=== PATIENT | female | born 1980 | race Caucasian/White ===

== ENCOUNTER → 2020-11-14 | Outpatient (CLI) | payer MEDICAID, OTHER ==
[~2020-11-14] MED LIST: ALBU0.63 NEB; ALBU8.5H8 INH; AMIT10TA PO; IPRATROPIUM NEB; LEVO112T4 PO; LOSA100T2 PO; PREG100C PO; TOPI200T25 PO; ZOLP10TA PO
[2020-11-14 15:09] LABS: BASOPHILS % (AUTO) 1 % (0-1); EOSINOPHILS % (AUTO) 2 % (1-7); LYMPHOCYTES % (AUTO) 18 % (22-44); MEAN CORPUSCULAR HEMOGLOBIN 28.7 pg (27.0-34.8); MEAN CORPUSCULAR HGB CONC 33.1 g/dL (32.4-35.8); MEAN PLATELET VOLUME 7.6 fL (7.4-10.4); MONOCYTES % (AUTO) 6 % (2-9); NEUTROPHILS % (AUTO) 74 % (42-75); PLATELET COUNT 278 x10^3/uL (130-400); RED BLOOD COUNT 4.79 x10^6/uL (3.82-5.3); RED CELL DISTRIBUTION WIDTH 14.8 % (9.6-15.2)
[2020-11-14 15:18] LABS: ALANINE AMINOTRANSFERASE 24 U/L (12-78); ALBUMIN 4.5 g/dL (3.4-5.0); ANION GAP 7 mmol/L (5-15); CALCIUM 9.8 mg/dL (8.5-10.1); CHLORIDE 109 mmol/L (98-107); CREATININE 1.06 mg/dL (0.55-1.02)
[2020-11-14 15:20] LABS: ALKALINE PHOSPHATASE 90 U/L (45-117); BILIRUBIN,TOTAL 0.4 mg/dL (0.2-1.0); TOTAL PROTEIN 7.7 g/dL (6.4-8.2)
[2020-11-14 15:24] LABS: MD NO
[2020-11-14 16:48] LABS: INTERNATIONAL NORMALIZED RATIO 0.93 (0.93-1.1); PROTHROMBIN TIME 9.9 Seconds (9.6-11.5)
== END | disposition home or self-care (01) ==
LOC: STAR 14:00
PROVIDERS: ATTEND Orthopaedic Surgery
DX: Z01.812 Encounter for preprocedural laboratory examination (principal); Z20.828 Contact with and (suspected) exposure to other viral communicable diseases; M17.12 Unilateral primary osteoarthritis, left knee
CPT/HCPCS: 80053; 83036; 85025; 85610; 85730; 87081; 87635

== ENCOUNTER 2020-11-20 06:46 | Day surgery (SDC) | payer MEDICAID, OTHER, SELFPAY ==
[~2020-11-20] VITALS: Ht 182.9 cm; Wt 140.0 kg
[~2020-11-20 06:46] MED LIST changes: +EPINEPHRINE 1 MG/ML, 1ML ONE; +KETOROLAC 60 MG/2 ML ONE; +ROPIvacaine/PF 0.5%, 20 ML ONE; +ROPIvacaine/PF 0.5%, 30 ML ONE; +SODIUM CHLORIDE 0.9% 50 ML ONE; +TRANEXAMIC ACID 100 MG/ML, 10ML ONE; +VANCOMYCIN 1,000 MG ONE
[2020-11-20] MEDS ORDERED: BISACODYL 10 MG SUPP PR PRN (07:00)
[2020-11-20] MEDS ORDERED: TEMPLATE NON-FORMULARY MED. (Albuterol Sulfate (Albuterol Sulfate**) 1 VIAL) NEB PRN (07:00)
[2020-11-20] MEDS ORDERED: MAGNESIUM HYDROXIDE 8%, 30ML UDC PO PRN (07:00)
[2020-11-20] MEDS ORDERED: ONDANSETRON 2MG/ML, 2ML IV PRN (07:00)
[2020-11-20] MEDS ORDERED: ACETAMINOPHEN 650 MG/20.3 ML UDC PO PRN (07:00)
[2020-11-20] MEDS ORDERED: ZOLPIDEM 10MG TABLET PO PRN (07:00)
[2020-11-20] MEDS ORDERED: ALBUTEROL HFA 90 MCG/SPRAY INH PRN (07:00)
[2020-11-20] MEDS ORDERED: DIPHENHYDRAMINE 50 MG CAPSULE PO PRN (07:00)
[2020-11-20] MEDS ORDERED: SENNA/DOCUSATE TABLET PO PRN (07:00)
[2020-11-20] MEDS ORDERED: HYDROcodone/APAP 5/325 TABLET PO PRN (07:00)
[2020-11-20] MEDS ORDERED: OXYcodone IR 5MG TABLET PO PRN (07:00)
[2020-11-20] MEDS ORDERED: ONDANSETRON 4 MG TABLET PO PRN (07:00)
[2020-11-20] MEDS ORDERED: HYDROmorphone 1 MG/ML, 1ML INJ IV PRN (07:00)
[2020-11-20] MEDS ORDERED: NS + 20MEQ KCL 1,000 ML IV SCH (07:00)
[2020-11-20] MEDS ORDERED: CEFAZOLIN PMX 2GM/50ML 50 ML IVPB SCH (07:00)
[2020-11-20 07:12] VITALS: BP 122/83
[2020-11-20] MEDS ORDERED: GABAPENTIN 300 MG CAPSULE PO STA (07:17)
[2020-11-20] MEDS ORDERED: ACETAMINOPHEN 500 MG TABLET PO STA (07:17)
[2020-11-20] MEDS ORDERED: VANCOMYCIN PER PHARMACY MC ONE (07:30)
[2020-11-20] MEDS ORDERED: CHLORHEXIDINE 15 ML UDC MM ONE (07:30)
[2020-11-20] MEDS ORDERED: LACTATED RINGERS 1,000 ML IV SCH (07:30)
[2020-11-20] MEDS ORDERED: DEXAMETHASONE 4 MG/ML, 1ML ONE (07:35)
[2020-11-20 07:39] LABS: HCG UR SG 1.023 (1.003-1.030)
[2020-11-20] MEDS ORDERED: MUPI22OI2 NAS (07:57)
[2020-11-20] MEDS ORDERED: HYDR-3653 PO (07:57)
[2020-11-20] MEDS ORDERED: VANCOMYCIN 2,000 MG in SODIUM CHLORIDE 0.9% 500 ML IV ONE (08:05)
[2020-11-20] MEDS ORDERED: MIDAZOLAM 1 MG/ML, 2ML ONE (08:07)
[2020-11-20] MEDS ORDERED: FENTANYL PF 250 MCG/5ML ONE (08:07)
[2020-11-20] MEDS ORDERED: TOPIRAMATE 200 MG PO SCH (09:00)
[2020-11-20] MEDS ORDERED: LEVOTHYROXINE 112 MCG TABLET PO SCH (09:00)
[2020-11-20] MEDS ORDERED: LOSARTAN 100 MG TAB PO SCH (09:00)
[2020-11-20] MEDS ORDERED: DOCUSATE 100 MG CAPSULE PO SCH (09:00)
[2020-11-20] MEDS ORDERED: PREGABALIN 100 MG CAPSULE PO SCH (09:00)
[2020-11-20] MEDS ORDERED: DIAZEPAM 5 MG/ML, 2ML IVPush PRN (09:30)
[2020-11-20] MEDS ORDERED: HYDROmorphone 2 MG/ML, 1ML IVPush PRN (09:30)
[2020-11-20] MEDS ORDERED: PROMETHAZINE 25 MG/ML, 1ML IV PRN (09:30)
[2020-11-20] MEDS ORDERED: LABETALOL 5MG/ML, 20ML IV PRN (09:30)
[2020-11-20] MEDS ORDERED: KETOROLAC 30 MG/1 ML IV PRN (09:30)
[2020-11-20] MEDS ORDERED: hydrALAzine 20 MG/ML, 1ML IV PRN (09:30)
[2020-11-20] MEDS ORDERED: MEPERIDINE/PF 25MG/0.5ML IVPush PRN (09:30)
[2020-11-20] MEDS ORDERED: ALBUTEROL SULFATE 2.5 MG/3 ML NPPB PRN (09:30)
[2020-11-20] MEDS ORDERED: OXYcodone 5 MG/5 ML ORAL.SOL UDC PO PRN (09:30)
[2020-11-20] MEDS ORDERED: ACETAMINOPHEN 325 MG TABLET PO PRN (09:30)
[2020-11-20] MEDS ORDERED: NEOSTIGMINE 1 MG/ML, 10ML ONE (10:00)
[2020-11-20] MEDS ORDERED: CEFAZOLIN 1,000 MG ONE (10:00)
[2020-11-20] MEDS ORDERED: PROPOFOL 10 MG/ML, 20ML ONE (10:00)
[2020-11-20] MEDS ORDERED: SUCCINYLCHOLINE 20 MG/ML, 10ML ONE (10:00)
[2020-11-20] MEDS ORDERED: GLYCOPYRROLATE 0.2MG/1ML, 5ML ONE (10:00)
[2020-11-20] MEDS ORDERED: ONDANSETRON 2MG/ML, 2ML ONE (10:00)
[2020-11-20] MEDS ORDERED: ROCURONIUM 10MG/ML,5ML ONE (10:00)
[2020-11-20] MEDS ORDERED: FENTANYL PF 100 MCG/2ML ONE (10:34)
[2020-11-20] MEDS: FENTANYL PF 100 MCG/2ML IV PRN ×2 (10:39→10:48)
[2020-11-20] MEDS ORDERED: DIAZEPAM 5 MG TABLET ONE (10:51)
[2020-11-20] MEDS ORDERED: DIAZEPAM 5 MG/ML, 2ML ONE (10:54)
[2020-11-20] MEDS ORDERED: ASPIRIN 81 MG TABLET EC PO SCH (18:00)
[2020-11-20] MEDS ORDERED: AMITRIPTYLINE 10 MG TABLET PO SCH (21:00)
[2020-11-21] MEDS ORDERED: DEXAMETHASONE 4 MG/ML, 1ML IVPush SCH (06:00)
== END 2020-11-20 14:30 | disposition home or self-care (01) ==
LOC: OUT 06:46
PROVIDERS: ATTEND Orthopaedic Surgery
DX: M17.32 Unilateral post-traumatic osteoarthritis, left knee (principal); T84.197A Other mechanical complication of internal fixation device of bone of left lower leg, initial encounter; M25.762 Osteophyte, left knee; G89.18 Other acute postprocedural pain; I10 Essential (primary) hypertension; G43.909 Migraine, unspecified, not intractable, without status migrainosus; J45.909 Unspecified asthma, uncomplicated; E66.01 Morbid (severe) obesity due to excess calories; Z79.890 Hormone replacement therapy; Z79.891 Long term (current) use of opiate analgesic; Z79.899 Other long term (current) drug therapy; Z88.2 Allergy status to sulfonamides; Z88.8 Allergy status to other drugs, medicaments and biological substances; Z87.891 Personal history of nicotine dependence; Z98.890 Other specified postprocedural states; Z82.61 Family history of arthritis; Z82.3 Family history of stroke; Y83.8 Other surgical procedures as the cause of abnormal reaction of the patient, or of later complication, without mention of misadventure at the time of the procedure
CPT/HCPCS: 27447; 64447; 81025; 97110; 97161; 97165; C1713; C1776; J0171; J0330; J0690; J1100; J1885; J2250; J2405; J2704; J2710; J2795; J3010; J3360; J3370; J7120

== ENCOUNTER 2021-02-18 12:06 | Emergency (ER) | payer MEDICAID, OTHER ==
[~2021-02-18] VITALS: Ht 182.9 cm; Wt 135.4 kg
[~2021-02-18 12:06] MED LIST changes: -EPINEPHRINE 1 MG/ML, 1ML ONE; +HYDR-3653 PO; -KETOROLAC 60 MG/2 ML ONE; +MUPI22OI2 NAS; -ROPIvacaine/PF 0.5%, 20 ML ONE; -ROPIvacaine/PF 0.5%, 30 ML ONE; -SODIUM CHLORIDE 0.9% 50 ML ONE; -TRANEXAMIC ACID 100 MG/ML, 10ML ONE; -VANCOMYCIN 1,000 MG ONE
[2021-02-18 12:48] VITALS: BP 151/104
--- NOTE | 2021-02-18 14:29 | NUR ---
Patient/Caregiver given discharge instructions and they have confirmed that they understand the instructions. Patient ambulatory with steady gait.
== END 2021-02-18 15:34 | disposition home or self-care (01) ==
LOC: ED 15:26
DX: S80.12XA Contusion of left lower leg, initial encounter (principal); S20.212A Contusion of left front wall of thorax, initial encounter; M25.512 Pain in left shoulder; M25.562 Pain in left knee; V59.49XA Driver of pick-up truck or van injured in collision with other motor vehicles in traffic accident, initial encounter; Y93.89 Activity, other specified; Y92.488 Other paved roadways as the place of occurrence of the external cause; Y99.8 Other external cause status
CPT/HCPCS: 99283